=== PATIENT | male | born 1965 | race Caucasian/White ===

== ENCOUNTER 2020-09-21 09:48 | Outpatient (CLI) | payer SELFPAY ==
--- NOTE | 2020-09-21 09:58 | XR_ITS ---
WS: [id number] SHOULDER RIGHT TECHNIQUE: 3 views of the right shoulder CLINICAL INFORMATION: shoulder injury COMPARISON: None. FINDINGS: Moderate degenerative arthritis AC joint and glenohumeral joint. Subacromial joint space narrowing. N o acute fractures. XR/XR shoulder RT min 2V* [id number] IMPRESSION: Moderate degenerative arthritis AC joint and glenohumeral joint with rotator cu ff arthropathy.
== END 2020-09-21 09:49 | disposition home or self-care (01) ==
LOC: RADWPI 09:51
PROVIDERS: PCP Family Medicine; Visit Provider Family Medicine
DX: S49.91XA Unspecified injury of right shoulder and upper arm, initial encounter (principal); X58.XXXA Exposure to other specified factors, initial encounter; M19.011 Primary osteoarthritis, right shoulder
CPT/HCPCS: 73030

== ENCOUNTER → 2022-07-27 09:44 | Outpatient (BNVA) | payer MEDICAID, SELFPAY | PROVIDERS: Visit Provider Family Medicine | DX: F32.9 Major depressive disorder, single episode, unspecified (principal); Z12.2 Encounter for screening for malignant neoplasm of respiratory organs; F17.200 Nicotine dependence, unspecified, uncomplicated; Z71.6 Tobacco abuse counseling | CPT/HCPCS: 80053; 80061; 85025 ==

== ENCOUNTER → 2022-09-11 08:29 | Outpatient (BNVA) | payer MEDICAID, SELFPAY | PROVIDERS: PCP Family Medicine; Visit Provider Family Medicine Adult Medicine | DX: R39.9 Unspecified symptoms and signs involving the genitourinary system (principal); R10.9 Unspecified abdominal pain; S39.012A Strain of muscle, fascia and tendon of lower back, initial encounter; X58.XXXA Exposure to other specified factors, initial encounter | CPT/HCPCS: 81000 ==

== ENCOUNTER 2022-09-18 09:39 | Emergency (ER) | payer MEDICAID, SELFPAY ==
[2022-09-18 09:50] VITALS: BP 152/86; PULSE 72; RESP 16; TEMP 36.6; O2SAT 98
--- NOTE | 2022-09-18 10:30 | CT_ITS ---
WS: [id number] CT ABDOMEN AND PELVIS NONCONTRAST HISTORY: left flank pain TECHNIQUE: Imaging performed through the abdomen and pelvis. Coronal and sagittal reformats are submi tted. All CT scans at [facility] use at least one of these dose optimization techniques: auto mated exposure control; mA and/or kV adjustment per patient size (includes targeted exams where dose is matched to clinical indication); or iterative reconstruction. DLP: 605.60 mGy.cm COMPARISON: 01/24/2010 Lower thorax: Lung bases are clear. Visualized heart is normal. No hiatal hernia. Liver: Normal size liver. No mass or bile duct dilatation. Gallbladder: Normal gallbladder. Pancreas: Normal size and attenuation. Normal pancreatic duct. No pancreatitis or mass. Spleen: Normal size with granulomata. Adrenal glands: Normal. No mass. Right kidney: Normal size kidney with no mass or hydronephrosis. Left kidney: Normal size kidney with no mass or hydronephrosis. Aorta: Mild atherosclerosis abdominal aorta with no aneurysm. No free fluid, intraperitoneal air or significant lymphadenopathy. GI tract: Normally distended stomach. No small bowel obstruction. Normal appendix. Mild diffuse const ipation. No obstruction. No diverticular disease. Abdominal wall: Negative. No hernia. Pelvis: Diffuse bladder wall thickening is mild. Prostate gland is enlarged with heavy calcification. No adenopathy. Osseous structures: Mild anterior wedging of L4 and T12. Cystic lesion with sclerotic borders in the RIGHT femoral head. Mild progression since 2009. Extensive SI joint sclerosis without erosions. Mild progression since 2009. CT/CT kidney stone [id number] IMPRESSION: 1. No acute abdominal or pelvic abnormalities are identified. No renal obstruc tion. 2. No diverticulitis. 3. Diffuse constipation. 4. Normal appendix. 5. Bilateral sacroiliitis has progressed since 2009. 6. Mild diffuse bladder wall thickening. Probably due to outlet obstruction fr om enlarged prostate gland.
--- NOTE | 2022-09-18 10:49 | ED_ITS ---
HPI - Male Genitourinary General: Chief complaint: Urogenital-Male Stated complaint: possible kidney stones Time Seen by Provider: 09/18/22 10:28 History of Present Illness: Patient is a 57-year-old male comes to the ED with left flank pain. Symptoms started approximately a week and a half ago. Patient was seen by his PCP today and given a shot of Toradol and sent here to the ED f or CT imaging to check for kidney stone. He rates the pain currently a 6 out of 10 and it starts in the left mid and lower back and wraps around to the left side of the abdomen and down into his left groin and left testicle. Denies any fevers, chills, nausea/vomiting, bladder or bowel symptoms. Denies any history of kidney stones. He has been taking naproxen at home and that has not been helping his pain. Associated symptoms: Deny dysuria, hematuria, nausea or vomiting Review of Systems Const: Denies: fever(s), chills or fatigue Eyes: Denies: change in vision or eye discomfort ENMT: Denies: throat pain, odynophagia, nasal discharge or nasal congestion Card: Denies: chest pain, palpitations, edema, swelling of feet/ankles, dyspnea on exertion or orthopnea Resp: Denies: dyspnea, productive cough or non-productive cough GI: Denies: abdominal pain, nausea, vomiting, diarrhea, constipation or hematochezia : Reports: flank pain (Left flank); Denies: difficulty urinating, dysuria or hematuria Musc: Denies: neck pain, back pain or extremity swelling Skin/Breast: Denies: rash or new lesions Neuro: Denies: headache(s), numbness in extremities or weakness in extremities PFSH ED PFSH: Medical History Acute flank pain Acute myofascial strain of lumbar region Blindness of right eye Surgical History History of left cataract surgery History of thumb surgery 2005 Family History Family/Other Cancer Paternal aunt--unknown Diabetes paternal uncle Brother Diabetes Hypertension Stroke Mother Lung disease copd Denies family history of CAD (coronary artery disease) Clotting disorder Dementia Hyperlipidemia Psychiatric illness Chronic kidney disease (CKD) Anesthesia complication Bleeding disorder Social History Smoking and tobacco status: current every day smoker cigarettes Packs smoked per day: 1.5 Years cigarettes smoked: 40 Alcohol intake: current Alcohol intake frequency: holidays/special occasions only Desire information about alcohol rehabilitation?: No Desire information about substance/drug rehabilitation?: No Lives independently: Yes Marital status: Number of children: 2 Current occupational status: employed Current occupation: [employer] Current gender identity: Male Physical Exam Const: COMMON NORMALS: patient oriented x3 and alert GENERAL APPEARANCE: cooperative HENMT: COMMON NORMALS: normocephalic HEAD & SCALP: normocephalic MOUTH: Normal oral and palatal mucosa present THROAT: posterior oropharynx normal and uvula midline Eye: COMMON NORMALS: Equal, round and reactive pupils present and EOMs intact bilaterally GENERAL EYE: appearance normal, both eyes and all related structures PUPIL: Yes Equal, round and reactive pupils present Neck/C-Spine: COMMON NORMALS: supple GENERAL: Yes normal visual inspection Lymph: LYMPHATIC: no lymphadenopathy noted Resp: COMMON NORMALS: normal respiratory effort, No retractions, No use of accessory muscles and clear to auscultation bilaterally AUSCULTATION: clear to auscultation bilaterally Cardio: COMMON NORMALS: regular rate, regular rhythm, S1 normal heart sound present, S2 normal heart sound present, No gallops present (Cardio), No clicks present (Cardio), No murmurs present (Cardio) and Peripheral pulses 2+ throughout RATE: regular rate RHYTHM: regular rhythm HEART SOUNDS: S1 normal heart sound present and S2 normal heart sound present PERIPHERAL PULSES: Peripheral pulses 2+ throughout GI: COMMON NORMALS: Normal to inspection, nondistended, normoactive bowel sounds present, Soft to palpation, non-tender and no masses PALPATION: Yes Soft to palpation : COMMON NORMALS: Yes no CVA tenderness BLADDER/KIDNEY EXAM: Yes no CVA tenderness Back/Pelvis: COMMON NORMALS: no CVA tenderness Extremity: GENERAL: Yes normal exam except as noted Neuro: COMMON NORMALS: patient oriented x3 and moves all extremities SENSORIUM/ORIENTATION: Yes alert SPEECH: speech normal Skin: COMMON NORMALS: no rashes or lesions noted GENERAL SKIN EXAM: no rashes or lesions noted and dry skin Course Vital Signs: Vital signs: Vital Signs Temperature 97.9 F 09/18/22 09:50 Pulse Rate 72 09/18/22 09:50 Respiratory Rate 17 09/18/22 12:14 Blood Pressure 152/86 09/18/22 09:50 Pulse Oximetry 98 09/18/22 09:50 Oxygen Delivery Me thod 09/18/22 09:50 MDM - Male Medical Decision Making Patient is a 57-year-old male comes to the ED with left flank pain. Symptoms started approximately a week and a half ago. Patient was seen by his PCP today and given a shot of Toradol and sent here to the ED for CT imaging to check for kidney stone. He rates the pain currently a 6 out of 10 and it starts in the left mid and lower back and wraps around to the left side of the abdomen and down into his left groin and left testicle. Denies any fevers, chills, nausea/ vomiting, bladder or bowel symptoms. Denies any history of kidney stones. Vitals are stable. Patient appears nontoxic in no acute distress or pain. Exam is benign. CBC, CMP are unremarkable. UA shows possible signs of UTI. CT of abdomen pelvis shows no acute findings or any obstructing renal stones. Given his pain starting in his back and then radiating down into his left groin region I am suspicious that he is having some kind of lumbar radiculopathy. He was diagnosed with lumbar radiculopathy and UTI. He was stable for discharge home and sent home with a prescription for Bactrim, Medrol Dosepak and some hydrocodone to help with acute pain. Follow-up with PCP in the next week for reevaluation. Return ED precautions given. Patient understood and agreed with plan. Lab Data I reviewed the patient's lab results. 09/18/22 11:18 09/18/22 11:18 Radiology Impressions Abdomen/Pelvis CT 09/18/22 10:30 IMPRESSION: 1. No acute abdominal or pelvic abnormalities are identified. No renal obstruction. 2. No diverticulitis. 3. Diffuse constipation. 4. Normal appendix. 5. Bilateral sacroiliitis has progressed since 2009. 6. Mild diffuse bladder wall thickening. Probably due to outlet obstruction from enlarged prostate gland. Laboratory Results WBC 7.5 10^3/uL (4.0-10.0) 09/18/22 11:18 RBC 5.51 10^6/uL (4.1-5.3) H 09/18/22 11:18 Hgb 16.9 g/dL (11.7-16.6) H 09/18/22 11:18 Hct 51.8 % (42.0-52.0) 09/18/22 11:18 MCV 94.0 fl (80-94) 09/18/22 11:18 MCH 30.7 pg (28.0-34.0) 09/18/22 11:18 MCHC 32.6 g/dL (30.0-36.0) 09/18/22 11:18 RDW 13.2 % (12.1-15.1) 09/18/22 11:18 Plt Count 251 10^3/cmm (130-400) 09/18/22 11:18 MPV 9.3 fL (7.4-10.4) 09/18/22 11:18 Neut % (Auto) 66.7 % 09/18/22 11:18 Lymph % (Auto) 24.5 % 09/18/22 11:18 [place] % (Auto) 6.3 % 09/18/22 11:18 Eos % (Auto) 1.3 % 09/18/22 11:18 Baso % (Auto) 1.1 % 09/18/22 11:18 Neut # (Auto) 4.97 10^3/uL (1.8-7.7) 09/18/22 11:18 Lymph # (Auto) 1.8 10^3/uL (0.8-4.8) 09/18/22 11:18 [place] # (Auto) 0.5 10^3/uL (0.2-0.9) 09/18/22 11:18 Eos # (Auto) 0.1 10^3/uL (0.0-0.8) 09/18/22 11:18 Baso # (Auto) 0.1 10^3/uL (0.0-0.1) 09/18/22 11:18 Nucleated RBC % (auto) 0 % 09/18/22 11:18 Nucleated RBCs # 0.0 /100WBC 09/18/22 11:18 Sodium 137 mmol/L (136-145) 09/18/22 11:18 Potassium 3.9 mmol/L (3.5-5.1) 09/18/22 11:18 Chloride 100 mmol/L (98-107) 09/18/22 11:18 Carbon Dioxide 28 mmol/L (22-29) 09/18/22 11:18 Anion Gap 12.9 (5-19) 09/18/22 11:18 BUN 9 mg/dL (6-20) 09/18/22 11:18 Creatinine 0.5 mg/dL (0.7-1.2) L 09/18/22 11:18 GFR Calculation 170.8 mL/min (90-130) H 09/18/22 11:18 Glucose 101 mg/dL (65-115) 09/18/22 11:18 Calculated Osmolality 283 mOsm/kg (285-295) L 09/18/22 11:18 Calcium 8.8 mg/dL (8.5-10.5) 09/18/22 11:18 Total Bilirubin 0.4 mg/dL (0.15-1.2) 09/18/22 11:18 AST 20 U/L (0-40) 09/18/22 11:18 ALT 20 U/L (0-41) 09/18/22 11:18 Alkaline Phosphatase 85 U/L (40-130) 09/18/22 11:18 Total Protein 7.3 g/dL (6.6-8.7) 09/18/22 11:18 Albumin 4.3 g/dL (3.5-5.2) 09/18/22 11:18 Globulin 3.0 g/dL (1.3-4.6) 09/18/22 11:18 Urine Color Yellow (Yellow) 09/18/22 12:15 Urine Appearance Hazy (CLEAR) A 09/18/22 12:15 Urine pH 7 (5-7) 09/18/22 12:15 Ur Specific [place] 1.010 (1.005-1.030) 09/18/22 12:15 Urine Protein Neg (Negative) 09/18/22 12:15 Urine Glucose (UA) Norm (Normal) 09/18/22 12:15 Urine Ketones Negative (Negative) 09/18/22 12:15 Urine Blood Neg (Negative) 09/18/22 12:15 Urine Nitrate Negative (Negative) 09/18/22 12:15 Urine Bilirubin Neg (Negative) 09/18/22 12:15 Urine Urobilinogen Norm mg/dL (Negative) 09/18/22 12:15 Ur Leukocyte Esterase 2+ (Negative) H 09/18/22 12:15 Urine RBC 0-4 /hpf (0-2) H 09/18/22 12:15 Urine WBC 5-10 /hpf (0-5) H 09/18/22 12:15 Ur Squamous Epith Cells Rare /hpf (0-5) 09/18/22 12:15 Amorphous Sediment Not Reportable 09/18/22 12:15 Urine Bacteria 1+ /hpf (NONE) H 09/18/22 12:15 Urine Mucus 1+ /hpf 09/18/22 12:15 Discharge Plan Discharge Patient Disposition: Home Clinical Impression: Lumbar radiculopathy, UTI (urinary tract infection) Condition: Stable Prescriptions: New Medrol (Ryan) 4 mg tablets,dose pack See Rx Instructions .ROUTE .COMPLEX Qty: 21 0RF Rx Instructions: orally per package directions Bactrim DS 800-160 mg tablet 1 tab PO BID 5 Days Qty: 10 0RF No Action bupropion HCl [Wellbutrin XL] 300 mg tablet extended release 24 hr 300 mg PO QAM Qty: 90 1RF tamsulosin [Flomax] 0.4 mg capsule 0.4 mg PO DAILY Qty: 20 0RF Discharge Orders: Discharge ED (Routine); Ordered 09/18/22 Ordered By: Cristóbal Eaton Referrals: Ortega Leach MD [Primary Care Provider] - Discharge Diet: Regular Discharge Activity: Increase activity as tolerated Patient Instructions: Lumbar Radiculopathy (ED) Activity Restrictions/Additional Instructions: Follow-up with medical provider as directed. Take medications as prescribed. Return to the ER or your medical provider if condition worsens. Please read and understand discharge instructions. Thank you for choosing [facility] for your healthcare needs today. Please realize this is an emergency room and that we are providing you with a medical screening exam and this may not be complete and all inclusive of all the testing and or work up that you may need to determine your ailment or severity of your illness. It is very important that you follow up as instructed or that you return to the Emergency Department should you have concerns or if your condition changes or worsens in any way. Stand Alone Forms: Work/School Release Coding Level of Care Code ED [employer] Exam Comprehensive
[2022-09-18 11:26] LABS: Basophils # 0.1 10^3/uL (0.0-0.1); Basophils % 1.1 %; Eosinophils # 0.1 10^3/uL (0.0-0.8); Eosinophils % 1.3 %; Hematocrit 51.8 % (42.0-52.0); Hemoglobin 16.9 g/dL (11.7-16.6); Lymphocytes # 1.8 10^3/uL (0.8-4.8); Lymphocytes % 24.5 %; Mean Corpuscular HGB Conc 32.6 g/dL (30.0-36.0); Mean Corpuscular Hemoglobin 30.7 pg (28.0-34.0); Mean Platelet Volume 9.3 fL (7.4-10.4); Monocytes # 0.5 10^3/uL (0.2-0.9); Monocytes % 6.3 %; Neutrophils # 4.97 10^3/uL (1.8-7.7); Neutrophils % 66.7 %; Nucleated Red Blood Cells % 0 %; Platelet Count 251 10^3/cmm (130-400); Red Blood Count 5.51 10^6/uL (4.1-5.3); Red Cell Distribution Width 13.2 % (12.1-15.1); White Blood Count 7.5 10^3/uL (4.0-10.0)
[2022-09-18 11:42] LABS: Alanine Aminotransferase 20 U/L (0-41); Albumin Level 4.3 g/dL (3.5-5.2); Alkaline Phosphatase 85 U/L (40-130); Anion Gap 12.9 (5-19); Aspartate Amino Transferase 20 U/L (0-40); Blood Urea Nitrogen 9 mg/dL (6-20); Calcium 8.8 mg/dL (8.5-10.5); Carbon Dioxide 28 mmol/L (22-29); Chloride 100 mmol/L (98-107); Glomerular Filtration Rate 170.8 mL/min (90-130); Glucose 101 mg/dL (65-115); Osmolality Calculated 283 mOsm/kg (285-295); Potassium 3.9 mmol/L (3.5-5.1); Sodium 137 mmol/L (136-145); Total Bilirubin 0.4 mg/dL (0.15-1.2); Total Protein 7.3 g/dL (6.6-8.7)
[2022-09-18] MEDS: dexamethasone 10 mg/mL INJ IM (12:13)
[2022-09-18 12:14] VITALS: RESP 17
[2022-09-18] MEDS: morphine 4 mg/mL SDV 1 mL IM (12:14)
[2022-09-18] MEDS: orphenadrine 30 mg/mL Inj 2 mL 60 MG IM (12:14)
[2022-09-18 12:41] LABS: Add Urine Microscopic? YES; Bilirubin Urine Neg (Negative); Blood Urine Neg (Negative); Glucose Urine UA Norm (Normal); Ketones Urine Negative (Negative); Leukocyte Esterase Urine 2+ (Negative); Nitrate Urine Negative (Negative); Protein Urine Neg (Negative); Urine Appearance Hazy (CLEAR); Urine Color Yellow (Yellow); Urobilinogen Urine Norm (Negative); pH Urine 7 (5-7)
[2022-09-18 12:42] LABS: Add Urine Culture? No; Bacteria Urine 1+ /hpf; Mucus Urine 1+ /hpf; RBC Urine 0-4 /hpf (0-2); Squamous Epithelial Cell Urine RARE /hpf (0-5)
== END 2022-09-18 12:40 | disposition home or self-care (01) ==
PROVIDERS: Emergency Provider Physician Assistant; PCP Family Medicine
DX: N39.0 Urinary tract infection, site not specified (principal); M54.16 Radiculopathy, lumbar region; F17.210 Nicotine dependence, cigarettes, uncomplicated
CPT/HCPCS: 36415; 74176; 80053; 81001; 85025; 96372; 99285; J1100; J2270; J2360

== ENCOUNTER 2022-11-30 11:22 | Outpatient (CLI) | payer MEDICAID, SELFPAY ==
--- NOTE | 2022-11-30 11:40 | CT_ITS ---
WS: [id number] LDCT LUNG CANCER SCREENING TECHNIQUE: Noncontrast CT of the chest with coronal and sagittal reformatted images. CLINICAL INFORMATION: lung cancer screening COMPARISON: None. DLP: 72.37 mGy.cm DIvol: Mean CTDIvol: 1.30 (mGy) All CT scans at [facility] use at least one of these dose optimization techniques: automat ed exposure control; mA and/or kV adjustment per patient size (includes targeted exams where dose is matched to clinical indication); or iterative reconstruction. FINDINGS: Subpleural nodule LEFT lower lobe medially measuring 5 mm. Tiny nodule LEFT lower lobe jacob g the diaphragm measuring 5.6 mm. 3 mm noncalcified nodule RIGHT upper lobe. Normal caliber thoracic aorta. Aortic calcification. Coronary calcification. No mediastinal or hilar lymphadenopathy. No axillary lymphadenopathy. Normal GE junction. Adrenal glands are normal. Chronic appearing anterior wedging at T12. Hypertrophic changes thoracic spine. CT/CT lung screening [id number] IMPRESSION: LUNG-RADS: 2-Benign Appearance or Behavior FOLLOW UP: 12 Month: Continue annual screening with LDCT
== END 2022-11-30 11:23 | disposition home or self-care (01) ==
LOC: RAD 11:28
PROVIDERS: PCP Family Medicine; Visit Provider Family Medicine
DX: Z12.2 Encounter for screening for malignant neoplasm of respiratory organs (principal); F17.219 Nicotine dependence, cigarettes, with unspecified nicotine-induced disorders
CPT/HCPCS: 71271

== ENCOUNTER 2024-01-11 08:59 | Outpatient (CLI) | payer MEDICAID, SELFPAY ==
--- NOTE | 2024-01-11 09:15 | CT_ITS ---
WS: [id number] LDCT LUNG CANCER SCREENING HISTORY: lung cancer screening TECHNIQUE: Axial imaging performed from the apices to 1 cm below the costophrenic angles. Coronal and sagittal reformats are submitted with axial MIP series. All CT scans at [facility] use at least one of these dose optimization techniques: automated exposure control; mA and/or kV adjustment per patient size (includes targeted exams where dose is matched to clinical indication); or iterativ e reconstruction. DLP: 71.21 mGy.cm DIvol: Mean CTDIvol: 1.50 (mGy) COMPARISON: 11/30/2022 Diagnostic quality: Satisfactory Lungs: Stable 4 mm nodule LEFT lung base. There are a few scattered micronodules. No new or increasin g size of any nodule. No pneumonia. No endobronchial lesions. Heart: Normal size heart with no pericardial effusion.. Other findings: Very minimal atherosclerosis aorta. Mild coronary artery calcification. Normal size p ulmonary artery. No pathological lymph nodes. No adrenal mass. Marked increase in thoracic kyphosis. Chronic anterior wedging of T12. CT/CT lung screening [id number] IMPRESSION: LUNG-RADS: 2-Benign Appearance or Behavior FOLLOW UP: 12 Month: Continue annual screening with LDCT OTHER FINDINGS (S MODIFIER): None.
== END 2024-01-11 09:00 | disposition home or self-care (01) ==
LOC: RAD 08:59
PROVIDERS: PCP Family Medicine; Visit Provider Family Medicine
DX: Z12.2 Encounter for screening for malignant neoplasm of respiratory organs (principal); F17.219 Nicotine dependence, cigarettes, with unspecified nicotine-induced disorders; R91.8 Other nonspecific abnormal finding of lung field; M40.204 Unspecified kyphosis, thoracic region; M48.54XA Collapsed vertebra, not elsewhere classified, thoracic region, initial encounter for fracture
CPT/HCPCS: 71271

== ENCOUNTER → 2025-07-27 09:44 | Outpatient (BNVA) | payer MEDICAID, SELFPAY | PROVIDERS: PCP Family Medicine; Visit Provider Family Medicine Adult Medicine | DX: R10.A1 Flank pain, right side (principal) | CPT/HCPCS: 81000 ==

== ENCOUNTER 2025-08-12 11:33 | Outpatient (CLI) | payer MEDICAID, SELFPAY ==
--- NOTE | 2025-08-12 11:39 | XR_ITS ---
WS: [id number] Lumbar spine, 3 views, 08/12/2025 Clinical Data: pain Comparison: None. Findings: No lumbar compression fractures or subluxation is seen. There are osteophytes at all the lumbar vertebral bodies. There is slight loss of superior cortical body height of T12. No disc space narrowing is seen. The transverse processes and SI joints are normal. Osteoporosis is present. There is a slight levoscoliosis. There is calcification of the abdominal aorta but no aneurysm. XR/XR lumbar spine 2-3V* [id number] Impression: 1. Slight depression of superior cortex of T12. 2. Osteoarthritis and osteoporosis of the lumbar vertebral bodies. 3. Minimal levoscoliosis.
--- NOTE | 2025-08-12 11:39 | XR_ITS ---
WS: [id number] Thoracic spine, 3 views, 08/12/2025 Clinical Data: pain Comparison: None. Findings: There is loss of the superior cortical height of the T12 vertebral body. The paravertebral regions are normal. The disc heights are normal. There is moderate osteoarthritis of all the thoracic vertebral bodies. Osteoporosis is present. XR/XR thoracic spine 3V* [id number] Impression: 1. Loss of superior cortical body height of T12 vertebral body which represent s a minimal compression fracture. 2. Osteoarthritis and osteoporosis.
== END 2025-08-12 11:34 | disposition home or self-care (01) ==
LOC: RAD 11:36
PROVIDERS: PCP Family Medicine; Visit Provider Family Medicine
DX: M53.84 Other specified dorsopathies, thoracic region (principal); M47.814 Spondylosis without myelopathy or radiculopathy, thoracic region; S22.080A Wedge compression fracture of T11-T12 vertebra, initial encounter for closed fracture; M80.08XA Age-related osteoporosis with current pathological fracture, vertebra(e), initial encounter for fracture; X58.XXXA Exposure to other specified factors, initial encounter; M47.816 Spondylosis without myelopathy or radiculopathy, lumbar region; Z12.5 Encounter for screening for malignant neoplasm of prostate; N40.0 Benign prostatic hyperplasia without lower urinary tract symptoms
CPT/HCPCS: 72072; 72100; 80053; 80061; 84153; 85025